=== PATIENT | male | born 1965 | race Caucasian/White ===

== ENCOUNTER 2018-08-14 19:33 | Emergency (ER) | payer MEDICAID ==
[2018-08-14] MEDS ORDERED: Sodium Chloride 0.9% 1,000 ML IV SCH (20:15)
[2018-08-14] MEDS ORDERED: Sodium Chloride 0.9% 10 ML Syringe FLUSH ONE (20:25)
[2018-08-14] MEDS ORDERED: Iopamidol 612 MG/ML 150 ML Bottle IV SCH (20:30)
--- NOTE | 2018-08-14 22:03 | CRLCT ---
INDICATION: Hemoptysis. TECHNIQUE: 3 mm axial imaging has been performed through the abdomen and pelvis. Sagittal and coronal reconstructions have been obtained. Findings: The lung bases are free of infiltrate. The enhancement of the liver is mildly heterogeneous. There is a small amount of free fluid adjacent to the liver. Subtle area decreased density is identified near the gallbladder fossa which may reflect some focal fat. The gallbladder is fluid filled without inflammatory change. The spleen is within normal limits. The bilateral adrenal glands are within normal limits. The kidneys demonstrate symmetric enhancement bilaterally. No hydronephrosis is seen. The pancreas demonstrates normal enhancement. No significant inflammatory change is seen. Retrocrural region and retroperitoneum demonstrate no lymphadenopathy. No significant free fluid is seen within the pelvis. There is inflammatory change extending inferior from the 2nd portion the duodenum into the right abdomen. This is posterior to the right colon. The appendix is within normal limits. Small amount of free fluid inferior to the cecum is noted. There is some wall thickening and inflammatory change of the right colon just proximal to the hepatic flexure. Questionable diverticulum noted in this region. The transverse colon and left colon demonstrates no inflammatory change. Urinary bladder is fluid-filled midline. Small bowel appears relatively decompressed. Prominent mesenteric vessels are identified as well as some prominent subcutaneous vessels. IMPRESSION: 1. Area of inflammation along the right abdomen. Small amount of free fluid adjacent to the liver. There does appear to be some wall thickening of the right colon just proximal to the hepatic flexure. Differential diagnosis includes focal colitis, diverticulitis or underlying mass lesion. There is small amount of free fluid adjacent to the cecum. Recommend colonoscopy. 2. Some mildly heterogeneous enhancement liver is identified which may reflect some intrinsic liver disease. 3. Some prominence to the mesenteric vessels is identified which may reflect a component of portal hypertension. 4. Findings discussed with the ordering provider. Dictated by Reginald Davis MD @ 08/14/2018 10:01:36 PM Please note that all CT scans at this facility use dose modulation, iterative reconstruction, and/or weight-based dosing when appropriate to reduce radiation dose to as low as reasonably achievable. Dictated by: Reginald Davis MD @ 08/14/2018 22:01:45 (Electronically Signed)
--- NOTE | 2018-08-14 22:15 | EDM.PDOC ---
ED HPI GENERAL MEDICAL PROBLEM - General Chief Complaint: Gastrointestinal Problem Stated Complaint: GI BLEED Time Seen by Provider: 08/14/18 20:05 Source of Information: Reports: Patient, Family () History Limitations: Reports: Intoxication - History of Present Illness INITIAL COMMENTS - FREE TEXT/NARRATIVE: Chief complaint: "spitting up blood for the past 2 months" This is a 52 year old male present to ER with his . He reports he is new to the area. Moved here 2 months ago from [place]. 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 But he has been drinking one pint of vodka daily for the past 2 months, prior to that, drank mostly on the weekends. Reports for two months has been intermittently spitting up small amounts of blood, intermittent dark tarry stools. reports had a EGD and Colonoscopy about 1 to 2 years ago, which was normal except for stricter in esophagus. denies chest pain, shortness of breath, fever, chills, rash or weakness. Onset: Gradual Duration: Chronic (2 months ), Waxing/Waning Location: Reports: Abdomen Quality: Reports: Other (reports no pain) Severity: Mild Improves with: Reports: None Associated Symptoms: Reports: No Other Symptoms - Related Data Allergies Allergy/AdvReac Type Severity Reaction Status Date / Time codeine Allergy Airway Verified 08/14/18 20:18 Tightness Home Meds: Home Meds Atenolol 1 tab PO DAILY 08/14/18 [History] Gabapentin [Gralise] 1 tab PO TID 08/14/18 [History] Omeprazole 1 tab PO DAILY 08/14/18 [History] clonazePAM [Clonazepam] 1 tab PO DAILY 08/14/18 [History] Past Medical History Cardiovascular History: Reports: Heart [place], [place] (medical management, no stents or surgery.) Respiratory History: Reports: Other (See Below) (started smoking cigarettes at age 38) Musculoskeletal History: Reports: Fracture Neurological History: Reports: Other (See Below) 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 prior to that drank every weekends and days off. Alcohol Use Frequency: Daily ([id number]), Weekly (for years) - Recreational Drug Use Recreational Drug Use: No - Living Situation & Occupation Living situation: Reports: Occupation: Employed (lives with in [place], [place]. He has 4 children, has 3 children.) ED ROS GENERAL - Review of Systems Review Of Systems: See Below Constitutional: Reports: No Symptoms HEENT: Reports: No Symptoms Respiratory: Reports: No Symptoms Cardiovascular: Reports: No Symptoms Endocrine: Reports: No Symptoms GI/Abdominal: Reports: Black Stool (dark tarry stool for 2 months.), Hematemesis : Reports: No Symptoms (for the past two months.) Musculoskeletal: Reports: No Symptoms Skin: Reports: No Symptoms Neurological: Reports: No Symptoms Psychiatric: Reports: No Symptoms Hematologic/Lymphatic: Reports: Easy Bleeding, Easy Bruising Immunologic: Reports: No Symptoms ED EXAM, GENERAL - Physical Exam Exam: See Below Exam Limited By: Intoxication (pleasant, cooperative, good historian) General Appearance: Alert, WD/WN, No Apparent Distress Eye Exam: Bilateral Eye: Abnormal EOM, Conjunctival Injection (jaundice-slight yellow color), PERRL Ear Exam: Bilateral Ear: Auricle Normal, Canal Normal, TM normal Nose: Normal Inspection, Normal Mucosa, No Blood Throat/Mouth: Normal Inspection, Normal Lips, Normal Teeth, Normal Gums, Normal Oropharynx, Normal Voice, No Airway Compromise Head: Atraumatic, Normocephalic Neck: Normal Inspection, Supple, Non-Tender, Full Range of Motion Respiratory/Chest: Lungs Clear, Normal Breath Sounds Cardiovascular: Regular Rate, Rhythm, No JVD, No Murmur, No Rub Peripheral Pulses: 2+: Radial (L), Radial (R), Posterior Tibial (L), Posterior Tibial (R) GI/Abdominal: Normal Bowel Sounds, Soft, Non-Tender, Distended ( reports his belly has been large for years, has not changed in size.) (Male) Exam: Deferred Rectal (Males) Exam: Deferred Back Exam: Normal Inspection, Full Range of Motion Extremities: Pedal Edema (trace edema) Neurological: No Motor/Sensory Deficits Psychiatric: Normal Affect, Normal Mood Skin Exam: Jaundice (eyes) Lymphatic: No Adenopathy Course - Vital Signs Last Recorded V/S: Last Vital Signs Temp 35.3 C 08/14/18 20:30 Pulse 105 H 08/14/18 20:30 Resp 19 08/14/18 20:30 BP 144/86 H 08/14/18 20:30 Pulse Ox 96 08/14/18 20:30 - Orders/Labs/Meds Orders: Active Orders 24 hr Category Date Time Status Sodium Chloride 0.9% [Normal Saline] 1,000 ml Med 08/14/18 20:15 Active IV ASDIRECTED Sodium Chloride 0.9% [Normal Saline] 85 ml Med 08/14/18 20:30 Active IV ASDIRECTED Medication Orders Sodium Chloride (Normal Saline) 1,000 mls @ 999 mls/hr IV ASDIRECTED NELLIE Sodium Chloride (Normal Saline) 85 mls @ 3 mls/sec IV ASDIRECTED NELLIE Last Admin: 08/14/18 20:53 Dose: 3 mls/sec Labs: Laboratory Tests 08/14/18 08/14/18 08/14/18 Range/Units 20:19 20:19 20:19 WBC 8.7 (4.5-11.0) K/uL RBC 2.97 L (4.30-5.90) M/uL Hgb 11.5 L (12.0-15.0) g/dL Hct 31.3 L (40.0-54.0) % MCV 105 H (80-98) fL MCH 39 H (27-31) pg MCHC 37 H (32-36) % Plt Count 79 L (150-400) K/uL Neut % (Auto) 47 (36-66) % Lymph % (Auto) 32 (24-44) % [place] % (Auto) 16 H (2-6) % Eos % (Auto) 5 H (2-4) % Baso % (Auto) 1 (0-1) % PT 15.4 H (9.5-12.0) sec INR 1.43 H (0.80-1.20) Sodium 138 L (140-148) mmol/L Potassium 3.6 (3.6-5.2) mmol/L Chloride 102 (100-108) mmol/L Carbon Dioxide 27 (21-32) mmol/L Anion Gap 12.6 (5.0-14.0) mmol/L BUN 8 (7-18) mg/dL Creatinine 0.9 (0.8-1.3) mg/dL Est Cr Clr Drug Dosing 93.83 mL/min Estimated GFR (MDRD) > 60 (>60) Glucose 131 H (74-106) mg/dL Calcium 8.6 (8.5-10.1) mg/dL Total Bilirubin 4.3 H (0.2-1.0) mg/dL AST 123 H (15-37) U/L ALT 37 (12-78) U/L Alkaline Phosphatase 261 H (46-116) U/L Ammonia (11-32) mmol/L Total Protein 9.3 H (6.4-8.2) g/dL Albumin 2.5 L (3.4-5.0) g/dL Globulin 6.8 H (2.3-3.5) g/dL Albumin/Globulin Ratio 0.4 L (1.2-2.2) Amylase 61 (25-115) U/L Lipase 351 (73-393) U/L Ethyl Alcohol mg/dL 08/14/18 08/14/18 Range/Units 20:19 20:19 WBC (4.5-11.0) K/uL RBC (4.30-5.90) M/uL Hgb (12.0-15.0) g/dL Hct (40.0-54.0) % MCV (80-98) fL MCH (27-31) pg MCHC (32-36) % Plt Count (150-400) K/uL Neut % (Auto) (36-66) % Lymph % (Auto) (24-44) % [place] % (Auto) (2-6) % Eos % (Auto) (2-4) % Baso % (Auto) (0-1) % PT (9.5-12.0) sec INR (0.80-1.20) Sodium (140-148) mmol/L Potassium (3.6-5.2) mmol/L Chloride (100-108) mmol/L Carbon Dioxide (21-32) mmol/L Anion Gap (5.0-14.0) mmol/L BUN (7-18) mg/dL Creatinine (0.8-1.3) mg/dL Est Cr Clr Drug Dosing mL/min Estimated GFR (MDRD) (>60) Glucose (74-106) mg/dL Calcium (8.5-10.1) mg/dL Total Bilirubin (0.2-1.0) mg/dL AST (15-37) U/L ALT (12-78) U/L Alkaline Phosphatase (46-116) U/L Ammonia 39 H (11-32) mmol/L Total Protein (6.4-8.2) g/dL Albumin (3.4-5.0) g/dL Globulin (2.3-3.5) g/dL Albumin/Globulin Ratio (1.2-2.2) Amylase (25-115) U/L Lipase (73-393) U/L Ethyl Alcohol 285 mg/dL Meds: Medications Generic Name Dose Route Start Last Admin Trade Name Freq PRN Reason Stop Dose Admin Sodium Chloride 1,000 mls @ 999 mls/hr 08/14/18 20:15 Normal Saline IV ASDIRECTED NELLIE Sodium Chloride 85 mls @ 3 mls/sec 08/14/18 20:30 08/14/18 20:53 Normal Saline IV 3 mls/sec ASDIRECTED NELLIE Administration Discontinued Medications Generic Name Dose Route Start Last Admin Trade Name Freq PRN Reason Stop Dose Admin Iopamidol 130 ml 08/14/18 20:30 08/14/18 20:53 Isovue-300 (61%) IV 150 ml . DIRECTED NELLIE Administration Sodium Chloride 10 ml 08/14/18 20:25 08/14/18 20:53 Saline Flush FLUSH 08/14/18 20:26 10 ml ONETIME ONE Administration - Re-Assessments/Exams Free Text/Narrative Re-Assessment/Exam: 08/14/18 22:35: Mr. Stone declines admission to hospital reviewed with Internal Medicine, labs are abnormal but no acute changes from labs on Wednesday will be okay to discharge to home with follow up in Primary Care tomorrow as schedule He need EGD and Colonoscopy in the near future. LABS: Wednesday08/12/2018; hemoglobin 12.0 today 11.5, Hct 33.3 today 31.3 plt [address] report, discussed ETOH treatment - he wants to wean himself off ETOH. discussed liver damage from drinking daily. 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 Mr. Stone does not want to stay, he will go home with follow up in Primary Care Departure - Departure Time of Disposition: 22:30 Disposition: Home, Self-Care 01 Condition: Good Clinical Impression: Gastritis Qualifiers: Gastritis type: alcoholic Chronicity: chronic Alcohol intoxication Qualifiers: Complication of substance-induced condition: with unspecified complication Qualified Code(s): F10.929 - Alcohol use, unspecified with intoxication, unspecified - Discharge Information *PRESCRIPTION DRUG MONITORING PROGRAM REVIEWED*: No *COPY OF PRESCRIPTION DRUG MONITORING REPORT IN PATIENT IFTIKHAR: No Instructions: Gastritis, Adult, [id number], Alcohol Intoxication, Easy-to- Read Referrals: Jj Mcneill NP [Primary Care Provider] - Forms: ED Department Discharge Care Plan Goals: Gastritis with Alcohol intoxication -continue Prilosec 40mg po bid -stop or cut down on drinking -stop smoking -avoid spicy foods, more of a bland diet -push fluids -keeps appointment in am for follow up Return to ER for any concerns or worsen symptoms. Copy of CT Abdomen-pelvis given to and Mrs. Stone for Health Record - Problem List & Annotations (1) Gastritis SNOMED Code(s): 4775756 Code(s): K29.70 - GASTRITIS, UNSPECIFIED, WITHOUT BLEEDING Status: Acute Priority: High Current Visit: Yes Qualifiers: Gastritis type: alcoholic Chronicity: chronic (2) Alcohol intoxication SNOMED Code(s): 27789348 Code(s): F10.929 - ALCOHOL USE, UNSPECIFIED WITH INTOXICATION, UNSPECIFIED Status: Acute Priority: High Current Visit: Yes Qualifiers: Complication of substance-induced condition: with unspecified complication Qualified Code(s): F10.929 - Alcohol use, unspecified with intoxication, unspecified - Problem List Review Problem List Initiated/Reviewed/Updated: Yes - My Orders Last 24 Hours: My Active Orders 08/14/18 20:15 Sodium Chloride 0.9% [Normal Saline] 1,000 ml IV ASDIRECTED 08/14/18 20:30 Sodium Chloride 0.9% [Normal Saline] 85 ml IV ASDIRECTED - Assessment/Plan Last 24 Hours: My Active Orders 08/14/18 20:15 Sodium Chloride 0.9% [Normal Saline] 1,000 ml IV ASDIRECTED 08/14/18 20:30 Sodium Chloride 0.9% [Normal Saline] 85 ml IV ASDIRECTED Plan: Gastritis with Alcohol intoxication -continue Prilosec 40mg po bid -stop or cut down on drinking -stop smoking -avoid spicy foods, more of a bland diet -push fluids -keeps appointment in am for follow up Return to ER for any concerns or worsen symptoms. Copy of CT Abdomen-pelvis given to MrMaxime and Maxime Stone for Health Record
== END 2018-08-14 22:39 | disposition home or self-care (01) ==
LOC: JP.ED 19:33
DX: K29.70 Gastritis, unspecified, without bleeding (principal); F10.929 Alcohol use, unspecified with intoxication, unspecified; Y90.8 Blood alcohol level of 240 mg/100 ml or more; F17.210 Nicotine dependence, cigarettes, uncomplicated; Z79.899 Other long term (current) drug therapy; Z88.5 Allergy status to narcotic agent
CPT/HCPCS: 36415; 74177; 80053; 82140; 82150; 83690; 85025; 85610; 99283; 99285; G0480; J7030

== ENCOUNTER 2018-08-16 07:56 | Inpatient (IN) | payer MEDICAID ==
[~2018-08-16 07:56] MED LIST: Midazolam 1 MG/ML 2 ML SDV ONE; Propofol 200 MG/20 ML SDV ONE; fentaNYL 100 MCG/2 ML SDV ONE
[2018-08-16] MEDS ORDERED: Dextrose 5%-Lactated Ringers 1,000 ML IV SCH (08:45)
[2018-08-16] MEDS ORDERED: Glycopyrrolate 0.2 MG/ML 2 ML SDV IVPUSH ONE (09:30)
[2018-08-16] MEDS ORDERED: Glycopyrrolate 0.2 MG/ML 2 ML SDV ONE (09:37)
[2018-08-16] MEDS ORDERED: Pantoprazole 40 MG Vial IVPUSH ONE (10:15)
[2018-08-16] MEDS ORDERED: MVI, Adult with Vitamin K 10 ML, Thiamine 100 MG, Chromium/Copper/Mang/Selen/Zn 1 ML in... IV ONE ×4 (11:00)
--- NOTE | 2018-08-16 12:34 | PCM.HP ---
H&P History of Present Illness - General Date of Service: 08/16/18 Admit Problem/Dx: Admission Diagnosis/Problem Admission Diagnosis/Problem Gastritis Source of Information: Patient, Family, Provider, RN Notes Reviewed History Limitations: Reports: No Limitations - History of Present Illness Initial Comments - Free Text/Narative: Mr. Stone is a 52-year-old gentleman who was admitted through the professional healthcare representative unit for further management of severe gastritis with hematemesis and alcohol withdrawal. He has a long-standing history of daily alcohol use consuming up to 16 ounces of alcohol per day. Over the past few weeks is experienced regular episodes of small amount of hematemesis as well as epigastric abdominal pain. He was referred to Dr. Stone for upper GI endoscopy which was performed earlier this morning. At the time of endoscopy was found to have diffuse gastritis as well as esophageal varices that were fairly prominent. He denies any previous history of liver disease, laboratory studies show thrombocytopenia which would be consistent with portal hypertension and splenic sequestration of platelets, elevated INR at 1.44, and elevated bilirubin of 5. - Related Data Allergies/Adverse Reactions: Allergies Allergy/AdvReac Type Severity Reaction Status Date / Time codeine Allergy Airway Verified 08/14/18 20:18 Tightness Home Medications: Home Meds Atenolol 25 mg PO DAILY 08/14/18 [History] Gabapentin [Gralise] 300 mg PO TID 08/14/18 [History] Omeprazole 20 mg PO DAILY 08/14/18 [History] clonazePAM [Clonazepam] 1 mg PO DAILY 08/14/18 [History] Multivitamin [Multivitamins] 1 cap PO DAILY 08/15/18 [History] Vitamin B Complex [B Complex] 1 cap PO DAILY 08/15/18 [History] Past Medical History Cardiovascular History: Reports: Heart Murmur, Hypertension, [place] Respiratory History: Reports: Asthma, Other (See Below) Other Respiratory History: coughing up blood Gastrointestinal History: Reports: GI Bleed Musculoskeletal History: Reports: Fracture Neurological History: Reports: Other (See Below) 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 Psychiatric History: Reports: Addiction - Infectious Disease History Infectious Disease History: Reports: Chicken Pox, Shingles - Past Surgical History Cardiovascular Surgical History: Reports: None Respiratory Surgical History: Reports: None GI Surgical History: Reports: Colonoscopy, EGD, Esophageal Dilatation Neurological Surgical History: Reports: None Musculoskeletal Surgical History: Reports: None Dermatological Surgical History: Reports: None Social & Family History - Family History Family Medical History: Unobtainable - Tobacco Use Smoking Status *Q: Current Every Day Smoker Years of Tobacco use: 14 Packs/Tins Daily: 0.5 Used Tobacco, but Quit: No Second Hand Smoke Exposure: No - Caffeine Use Caffeine Use: Reports: Coffee, Soda - Alcohol Use Days Per Week of Alcohol Use: 7 Number of Drinks Per Day: 1 Total Drinks Per Week: 7 Date of Last Drink: 08/15/18 Time of Last Drink: 20:00 - Recreational Drug Use Recreational Drug Use: No - Living Situation & Occupation Living situation: Reports: Occupation: Employed H&P Review of Systems - Review of Systems: Review Of Systems: See Below General: Reports: No Symptoms HEENT: Reports: No Symptoms Pulmonary: Reports: No Symptoms Cardiovascular: Reports: No Symptoms Gastrointestinal: Reports: Abdominal Pain, Distension, Hematemesis, Nausea. Denies: Constipation, Diarrhea, Difficulty Swallowing Genitourinary: Reports: No Symptoms Musculoskeletal: Reports: No Symptoms Skin: Reports: No Symptoms Psychiatric: Reports: No Symptoms Neurological: Reports: No Symptoms Hematologic/Lymphatic: Reports: No Symptoms Immunologic: Reports: No Symptoms Exam - Exam Exam: See Below - Vital Signs Vital Signs: Last Vital Signs Temp 98.8 F 08/16/18 10:27 Pulse 115 H 08/16/18 11:42 Resp 18 08/16/18 11:42 BP 155/81 H 08/16/18 11:42 Pulse Ox 99 08/16/18 11:42 Weight: 205 lb - Exam Quality Assessment: DVT Prophylaxis General: Alert, Oriented, Cooperative, Moderate Distress HEENT: Hearing Intact, Mucosa Moist & [place], Normal Nasal Septum, Posterior Pharynx Clear, Pupils Equal. No: Conjunctiva Clear (Jaundice) Neck: Supple, Trachea Midline, +2 Carotid Pulse wo Bruit Lungs: Clear to Auscultation, Normal Respiratory Effort Cardiovascular: Regular Rate, Regular Rhythm, Normal S1, Normal S2. No: Systolic Murmur, Diastolic Murmur GI/Abdominal Exam: Soft, No Organomegaly, Distended, Tender. No: Guarding, Rigid, Rebound Back Exam: Normal Inspection, Full Range of Motion Extremities: Non-Tender, No Pedal Edema Skin: Warm, Dry, Intact Neurological: Cranial Nerves Intact, Strength Equal Bilateral, Normal Speech, Normal Tone, Sensation Intact. No: Focal Deficit Neuro Extensive - Mental Status: Alert, Oriented x3, Normal Mood/Affect, Normal Cognition, Memory Intact - Patient Data Lab Results Last 24 hrs: Laboratory Results - last 24 hr 08/16/18 08/16/18 Range/Units 08:27 08:27 WBC 7.8 (4.5-11.0) K/uL RBC 3.04 L (4.30-5.90) M/uL Hgb 11.5 L (12.0-15.0) g/dL Hct 31.9 L (40.0-54.0) % MCV 105 H (80-98) fL MCH 38 H (27-31) pg MCHC 36 (32-36) % Plt Count 77 L (150-400) K/uL PT 15.5 H (9.5-12.0) sec INR 1.44 H (0.80-1.20) APTT 38.3 H (27.0-36.0) sec Result Diagrams: 08/16/18 08:27 08/16/18 12:25 *Q Meaningful Use (ADM) - VTE *Q VTE Pharmacological Contraindications *Q: Active Hemorrhage - VTE Risk Assess *Q Each Risk Factor Represents 1 Point: Age 41 - 59 years, Obesity ( BMI > 25 kg/m2 ) Total Score 1 Point Risk Factors: 2 Each Risk Factor Represents 2 Points: None Total Score 2 Point Risk Factors: 0 Each Risk Factor Represents 3 Points: None Total Score 3 Point Risk Factors: 0 Each Risk Factor Represents 5 Points: None Total Score 5 Point Risk Factors: 0 Venous Thromboembolism Risk Factor Score *Q: 2 Problem List Initiated/Reviewed/Updated: Yes Orders Last 24hrs: Active Orders 24 hr Category Date Time Status Patient Status Manage Transfer [TRANSFER] Routine ADT 08/16/18 12:25 Ordered EDNA TEST [RM] Routine Lab 08/16/18 09:58 Received COMPREHENSIVE METABOLIC PN,CMP [CHEM] Stat Lab 08/16/18 12:25 Ordered MAGNESIUM [CHEM] Stat Lab 08/16/18 12:25 Ordered Dextrose 5%-Lactated Ringers 1,000 ml Med 08/16/18 08:45 Active IV ASDIRECTED MVI, Adult with Vitamin K [Infuvite Adult] 10 ml Med 08/16/18 11:00 Active Thiamine [Vitamin B-1] 100 mg Chromium/Copper/Wally/Selen/Zn [Multitrace-5 Concentrate ] 1 ml Lactated Ringers [Ringers, Lactated] 1,000 ml IV ONETIME Resuscitation Status Routine Resus Stat 08/16/18 12:27 Ordered Medication Orders Dextrose/Lactated Ringer's (Dextrose 5%-Lactated Ringers) 1,000 mls @ 100 mls/ hr IV ASDIRECTED NELLIE Last Admin: 08/16/18 08:46 Dose: 100 mls/hr Multivitamins/Minerals 10 ml/Thiamine HCl 100 mg/ Chromium/Copper/Manganese/ Seleni/Zn 1 ml/ Lactated Ringer's 1,012 mls @ 500 mls/hr IV ONETIME ONE Stop: 08/16/18 13:01 Last Admin: 08/16/18 11:15 Dose: 500 mls/hr Assessment/Plan Comment:: ASSESSMENT AND PLAN SEVERE GASTRITIS-likely secondary to long-standing alcohol use, CLOtest pending -Protonix 40 mg IV twice daily -Discontinue alcohol use -Clear liquid diet HEPATIC 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 There is evidence of portal hypertension with esophageal varices and thrombocytopenia likely secondary to splenic enlargement. -Discontinue alcohol use -Initiate beta jacki therapy because of varices -Outpatient referral to gastroenterology for management of varices ALCOHOL WITHDRAWAL-evidence of withdrawal including tremulousness and mild confusion -Alcohol withdrawal protocol -Gabapentin 400 mg by mouth every 8 hours 4 days, then 200 mg every 8 hours 4 days -Referral for alcohol treatment after discharge MAINTENANCE ISSUES -DVT prophylaxis; SCUDs, anticoagulation contraindicated because of recent bleeding -GI prophylaxis; Protonix as above -Mullins catheter; not indicated -Nutrition; clear liquid diet -Nicotine dependence; 7 mg nicotinic patch CODE STATUS-FULL CODE ADMISSION STATUS-patient will be admitted to inpatient status, expect at least a 2 night hospital stay for evaluation and management of problems as outlined above. At the time of this admission I do not reasonably expected evaluation and management of this problem will require more than a 96 hour hospital stay. DISPOSITION-anticipate discharge to alcohol treatment PRIMARY CARE PROVIDER-Jj Mcneill
[2018-08-16] MEDS ORDERED: Ondansetron 4 MG/2 ML SDV IV PRN (13:20)
[2018-08-16] MEDS ORDERED: Non-Formulary Medication 1 Each (Multivitamin [Multivitamins] 1 CAP) PO SCH (13:20)
[2018-08-16] MEDS ORDERED: LORazepam 2 MG/ML SDV IV SCH (13:20)
[2018-08-16] MEDS ORDERED: Sodium Chloride 0.9% 10 ML Syringe FLUSH PRN (13:20)
[2018-08-16] MEDS: Sodium Chloride 0.9% 1,000 ML IV SCH ×2 (13:53→21:09)
[2018-08-16] MEDS ORDERED: Nicotine 7 MG/24 Hr Patch TRDERM SCH (14:00)
[2018-08-16] MEDS ORDERED: Thiamine 100 MG Tab PO SCH (14:00)
[2018-08-16] MEDS ORDERED: Potassium Chloride 20 MEQ Tab.ER PO ONE (14:00)
[2018-08-16] MEDS ORDERED: Folic Acid 1 MG Tab PO SCH (14:00)
[2018-08-16] MEDS ORDERED: Pantoprazole 40 MG Vial IV SCH (14:00)
[2018-08-16] MEDS: Gabapentin 400 MG Cap PO SCH ×2 (14:06→21:04)
[2018-08-16] MEDS: Magnesium Sulfate/Water 2 GM in Premix Bag 1 BAG IV SCH ×2 (14:06→19:58)
[2018-08-16] MEDS: Magnesium Oxide 400 MG Tab PO SCH ×2 (14:06→21:04)
[2018-08-16] MEDS: LORazepam 1 MG Tab PO SCH ×5 (14:25→21:51)
--- NOTE | 2018-08-16 23:44 | CRLCT ---
INDICATION: Left-sided weakness TECHNIQUE: CT head without contrast. COMPARISON: None FINDINGS: CSF spaces: Within normal limits for age. Brain parenchyma: 3.5 centimeter x 2.7 centimeter right frontal parafalcine hemorrhage with effacement of the right mid lateral ventricle body. Effacement is also noted involving the right frontal insert and parietal sulci. Dependent blood identified in both occipital horns. Mild right to left midline shift. Skull base and calvarium: The visualized paranasal sinuses and mastoid air cells demonstrate no acute or significant findings. The visualized orbits are grossly unremarkable. No skull fractures. IMPRESSION: 3.5 centimeter x 2.7 centimeter right frontal parafalcine intraparenchymal hemorrhage with mild [id number] midline shift and dependent blood products in both occipital horns. Effacement of the right anterior mid lateral ventricular body and effacement of adjacent hemispheric sulci. Findings discussed on 08/16/2018 at 11:[address] Martinez. Dictated by Wai Tirado MD @ 08/16/2018 11:41:39 PM Please note that all CT scans at this facility use dose modulation, iterative reconstruction, and/or weight-based dosing when appropriate to reduce radiation dose to as low as reasonably achievable. Dictated by: Wai Tirado MD @ 08/16/2018 23:41:45 (Electronically Signed)
--- NOTE | 2018-08-17 00:25 | PCM.DCSUM1 ---
Discharge Summary - Hospital Course Brief History: Mr. Stone is a 52-year-old gentleman who was admitted from the outpatient area the hospital for further evaluation and management of severe gastritis with recent hematemesis and alcohol withdrawal. - Discharge Data Discharge Date: 08/17/18 Discharge Disposition: DC/Tfer to Acute Hospital 02 Condition: Serious - Discharge Diagnosis/Problem(s) (1) Alcohol withdrawal SNOMED Code(s): 663577555 ICD Code: F10.239 - ALCOHOL DEPENDENCE WITH WITHDRAWAL, UNSPECIFIED Status : Acute Current Visit: Yes (2) Cirrhosis of liver SNOMED Code(s): 41635757 ICD Code: K74.60 - UNSPECIFIED CIRRHOSIS OF LIVER Status: Acute Current Visit: Yes (3) Intracerebral hemorrhage SNOMED Code(s): 250398047 ICD Code: I61.9 - NONTRAUMATIC INTRACEREBRAL HEMORRHAGE, UNSPECIFIED Status : Acute Current Visit: Yes (4) Gastritis SNOMED Code(s): 1539778 ICD Code: K29.70 - GASTRITIS, UNSPECIFIED, WITHOUT BLEEDING Status: Acute Priority: High Current Visit: No Qualifiers: Gastritis type: alcoholic Chronicity: chronic - Patient Summary/Data Hospital Course: Mr. Stone is a 52-year-old gentleman who was admitted through the home care manager rn unit for further management of severe gastritis with hematemesis and alcohol withdrawal. He has a long-standing history of daily alcohol use consuming up to 16 ounces of alcohol per day. Over the past few weeks is experienced regular episodes of small amount of hematemesis as well as epigastric abdominal pain. He was referred to Dr. Stone for upper GI endoscopy which was performed earlier this morning. At the time of endoscopy was found to have diffuse gastritis as well as esophageal varices that were fairly prominent. He denies any previous history of liver disease, laboratory studies show thrombocytopenia which would be consistent with portal hypertension and splenic sequestration of platelets, elevated INR at 1.44, and elevated bilirubin of 5. On admission he was given IV fluids for hydration and started on alcohol withdrawal protocol. In addition he was placed on gabapentin 400 mg every 8 hours for management of alcohol withdrawal. Nadolol 40 mg twice daily was initiated because of varices noted at the time of EGD. Protonix 40 mg IV every 12 hours was initiated for management of his gastritis. After admission he did develop more prominent symptoms of alcohol withdrawal requiring use of lorazepam. Earlier in the day he had reported symptoms of headache and was given oxycodone 5 mg every 4 hours, by the time of transfer his headache had resolved. On evaluation nurse and staff noted left arm weakness on the evening of transfer. On evaluation by myself he was noted to have moderate to severe muscle weakness involving the left upper extremity. There was also possible mild weakness of the left lower extremity. Sensation was intact and reflexes were symmetrical, no cranial nerve abnormalities were identified. NIHSS score was found to be [address] scan of the head without contrast was obtained and showed evidence of a large right-sided cerebral hemorrhage. Findings were reviewed with the neurosurgeon on-call at [facility] as well as the hospitalist on-call and they have agreed to accept the patient in transfer for further subspecialty evaluation and management. - Patient Instructions Diet: NPO Activity: Bedrest Other/Special Instructions: Mr. Stone will be transferred to [facility] via [facility] ambulance - Discharge Plan *PRESCRIPTION DRUG MONITORING PROGRAM REVIEWED*: Not Applicable *COPY OF PRESCRIPTION DRUG MONITORING REPORT IN PATIENT IFTIKHAR: Not Applicable Home Medications: Home Meds Gabapentin [Gralise] 300 mg PO TID 08/14/18 [History] Omeprazole 20 mg PO DAILY 08/14/18 [History] clonazePAM [Clonazepam] 1 mg PO DAILY 08/14/18 [History] Multivitamin [Multivitamins] 1 cap PO DAILY 08/15/18 [History] Vitamin B Complex [B Complex] 1 cap PO DAILY 08/15/18 [History] Folic Acid 1 mg PO DAILY tablet 08/17/18 [Rx] Nadolol [Naldol] 40 mg PO BID tablet 08/17/18 [Rx] Nicotine [Habitrol] 7 mg TRDERM DAILY patch 08/17/18 [Rx] Pantoprazole [ProTONIX IV] 40 mg IV Q12H vial 08/17/18 [Rx] Thiamine [Vitamin B-1] 100 mg PO DAILY tablet 08/17/18 [Rx] - Discharge Summary/Plan Comment DC Time >30 min.: Yes (60 minutes of time were spent evaluating the patient and arranging transfer) - Patient Data Vitals - Most Recent: Last Vital Signs Temp 99.8 F 08/17/18 00:00 Pulse 89 08/17/18 00:00 Resp 13 08/17/18 00:00 BP 159/91 H 08/16/18 23:00 Pulse Ox 95 08/17/18 00:00 Weight - Most Recent: 205 lb I&O - Last 24 hours: Intake & Output 08/16/18 08/16/18 08/17/18 14:59 22:59 06:59 Intake Total 1100 2304 Output Total 1325 50 Balance 1100 979 -50 Lab Results - Last 24 hrs: Laboratory Results - last 24 hr 08/16/18 08/16/18 08/16/18 Range/Units 08:27 08:27 12:25 WBC 7.8 (4.5-11.0) K/uL RBC 3.04 L (4.30-5.90) M/uL Hgb 11.5 L (12.0-15.0) g/dL Hct 31.9 L (40.0-54.0) % MCV 105 H (80-98) fL MCH 38 H (27-31) pg MCHC 36 (32-36) % Plt Count 77 L (150-400) K/uL PT 15.5 H (9.5-12.0) sec INR 1.44 H (0.80-1.20) APTT 38.3 H (27.0-36.0) sec Sodium 135 L (140-148) mmol/L Potassium 3.7 (3.6-5.2) mmol/L Chloride 101 (100-108) mmol/L Carbon Dioxide 24 (21-32) mmol/L Anion Gap 13.7 (5.0-14.0) mmol/L BUN 8 (7-18) mg/dL Creatinine 0.9 (0.8-1.3) mg/dL Est Cr Clr Drug Dosing 90.78 mL/min Estimated GFR (MDRD) > 60 (>60) Glucose 107 H (74-106) mg/dL Calcium 8.4 L (8.5-10.1) mg/dL Magnesium 1.6 L (1.8-2.4) mg/dL Total Bilirubin 5.0 H (0.2-1.0) mg/dL AST 125 H (15-37) U/L ALT 33 (12-78) U/L Alkaline Phosphatase 175 H (46-116) U/L Total Protein 9.1 H (6.4-8.2) g/dL Albumin 2.3 L (3.4-5.0) g/dL Globulin 6.8 H (2.3-3.5) g/dL Albumin/Globulin Ratio 0.3 L (1.2-2.2) Med Orders - Current: Current Medications Folic Acid (Folic Acid) 1 mg PO DAILY [facility] Last Admin: 08/16/18 14:06 Dose: 1 mg Gabapentin (Neurontin) 400 mg PO Q8H [facility] Last Admin: 08/16/18 21:04 Dose: 400 mg Sodium Chloride (Normal Saline) 1,000 mls @ 125 mls/hr IV ASDIRECTED [facility] Last Admin: 08/16/18 21:09 Dose: 125 mls/hr Lorazepam (Ativan) 0 mg IV ASDIRECTED [facility]; Protocol Lorazepam (Ativan) 0 mg PO ASDIRECTED [facility]; Protocol Last Admin: 08/16/18 21:51 Dose: 1 mg Magnesium Oxide (Magnesium Oxide) 400 mg PO BID [facility] Last Admin: 08/16/18 21:04 Dose: 400 mg Multivitamins/Minerals (Thera M Plus) 1 tab PO DAILY [facility] Nadolol (Naldol) 40 mg PO BID [facility] Last Admin: 08/16/18 21:04 Dose: 40 mg Nicotine (Habitrol) 7 mg TRDERM DAILY [facility] Last Admin: 08/16/18 14:06 Dose: Not Given Ondansetron HCl (Zofran) 4 mg IV Q4H PRN PRN Reason: Nausea/Vomiting Last Admin: 08/16/18 16:31 Dose: 4 mg Pantoprazole Sodium (Protonix Iv) 40 mg IV Q12H [facility] Last Admin: 08/16/18 14:07 Dose: 40 mg Sodium Chloride (Saline Flush) 10 ml FLUSH ASDIRECTED PRN PRN Reason: Keep Vein Open Thiamine HCl (Vitamin B-1) 100 mg PO DAILY [facility] Last Admin: 08/16/18 14:06 Dose: 100 mg Vitamin B Complex (Vitamin B Complex) 1 each PO DAILY [facility] Discontinued Medications Atenolol (Tenormin) 25 mg PO DAILY [facility] Fentanyl (Sublimaze) Confirm Administered Dose 100 mcg .ROUTE .STK-MED ONE Stop: 08/16/18 07:53 Glycopyrrolate (Glycopyrrolate) 0.4 mg IVPUSH ONETIME ONE Stop: 08/16/18 09:31 Last Admin: 08/16/18 19:09 Dose: Not Given Glycopyrrolate (Glycopyrrolate) Confirm Administered Dose 0.4 mg .ROUTE .STK- MED ONE Stop: 08/16/18 09:38 Dextrose/Lactated Ringer's (Dextrose 5%-Lactated Ringers) 1,000 mls @ 100 mls/ hr IV ASDIRECTED [facility] Last Admin: 08/16/18 08:46 Dose: 100 mls/hr Multivitamins/Minerals 10 ml/Thiamine HCl 100 mg/ Chromium/Copper/Manganese/ Seleni/Zn 1 ml/ Lactated Ringer's 1,012 mls @ 500 mls/hr IV ONETIME ONE Stop: 08/16/18 13:01 Last Admin: 08/16/18 11:15 Dose: 500 mls/hr Magnesium Sulfate 2 gm/ Premix 50 mls @ 25 mls/hr IV Q6H [facility] Stop: 08/16/18 21:59 Last Admin: 08/16/18 19:58 Dose: 25 mls/hr Midazolam HCl (Versed 1 Mg/Ml) Confirm Administered Dose 2 mg .ROUTE .STK-MED ONE Stop: 08/16/18 07:53 Pantoprazole Sodium (Protonix Iv) 40 mg IVPUSH ONETIME ONE Stop: 08/16/18 10:16 Last Admin: 08/16/18 10:20 Dose: 40 mg Potassium Chloride (Klor-Con M20) 40 meq PO ONETIME ONE Stop: 08/16/18 14:01 Last Admin: 08/16/18 14:06 Dose: 40 meq Propofol (Diprivan 20 Ml) Confirm Administered Dose 200 mg .ROUTE .STK-MED ONE Stop: 08/16/18 07:53 - Exam Quality Assessment: Reports: DVT Prophylaxis General: Reports: Alert, Oriented, Cooperative, Mild Distress HEENT: Reports: Pupils Equal, Pupils Reactive, EOMI, Mucous Membr. Moist/[place], Scleral Icterus Neck: Reports: Supple Lungs: Reports: Clear to Auscultation, Normal Respiratory Effort Cardiovascular: Reports: Regular Rate, Regular Rhythm, No Murmurs GI/Abdominal Exam: Soft, No Organomegaly, Tender. No: Distended, Guarding, Rigid, Rebound Extremities: Non-Tender, No Pedal Edema Skin: Reports: Warm, Dry, Intact Neurological: Reports: Normal Speech, Reflexes Equal Bilateral, Sensation Intact , Cranial Nerves Intact. Denies: Strength Equal Bilateral (Left upper extremity weakness) Psy/Mental Status: Reports: Withdrawal Symptoms *Q Meaningful Use (DIS) - VTE *Q VTE Pharmacological Contraindications *Q: Active Hemorrhage
[2018-08-17] MEDS ORDERED: Atenolol 25 MG Tab PO SCH (09:00)
[2018-08-17] MEDS ORDERED: Vitamin B Complex Tab PO SCH (09:00)
[2018-08-17] MEDS ORDERED: Multivitamins with Iron/Calcium/Folic Acid/Minerals Tab PO SCH (09:00)
--- NOTE | 2018-08-18 12:45 | OR ---
DATE OF PROCEDURE: 08/16/2018 PREOPERATIVE DIAGNOSIS: Epigastric pain with history of hematemesis. POSTOPERATIVE DIAGNOSES: Upper GI endoscopy showing, 1. Large esophageal varices, but without signs of recent ulceration or bleeding. 2. Diffuse gastritis with scattered erosions in antrum (again with no active bleeding). OPERATIVE PROCEDURE: Esophagogastroduodenoscopy with antral biopsies for CLOtest. ANESTHESIA: IV sedation. INDICATION FOR PROCEDURE: This 52-year-old is presenting with some history of hematemesis. He has history of severe alcoholism and appeared to be probably in renal withdrawal state presently. He presently has been on omeprazole 20 to 40 mg a day, although, compliance with that regimen is somewhat questionable. The plan is to proceed with upper GI endoscopy with biopsies as indicated. Potential risks including bleeding and perforation were discussed, and the patient wishes to proceed. DETAILS OF PROCEDURE: The patient was taken to the operating room and placed in a left lateral decubitus position. IV sedation was administered, after which the upper GI endoscope was passed orally through the length of the esophagus and into the stomach with retroflexion view of the fundus, and thereafter through the pyloric channel and into the proximal duodenum. Findings included normal hypopharynx, larynx, and upper esophageal sphincter. As one entered the esophageal body, roughly senior care down toward the EG junction, there were some varices beginning to be seen. As one approached the EG junction, one of these varices probably in the range of 8 to 10 mm. There were also some smaller varices present near the EG junction as well. However, there was no significant inflammation of the mucosa in this area, i.e., there were no significant esophagitis or erosions present. The patient had no significant hiatal hernia. Within the stomach, there was some diffuse gastritis with some scattered erosions in the antral area. These were covered with fibrinous exudate, but no active bleeding was seen. The pyloric channel and duodenum junction of the third and fourth portions were otherwise unremarkable. At this point, biopsies were obtained from the antrum and sent for CLOtest for H. pylori. Minimal bleeding from the biopsy sites was seen, and the procedure then concluded. At this point, we will have Dr. Martinez see the patient with regard to hospitalist consultation regarding possible admission for treatment of the alcohol addiction. Otherwise, we will ask Dr. Martinez whether some management options such as adding beta- blockers might be considered given the extent of the esophageal varices. Jesús Stone MD /[id number]
== END 2018-08-17 00:30 | DRG 377 ==
LOC: JP.SDS 07:56 → JP.ICU 12:25
PROVIDERS: ADMIT Hospitalist; ATTEND Hospitalist
PROC: 0DB78ZX Excision of Stomach, Pylorus, Via Natural or Artificial Opening Endoscopic, Diagnostic (ICD-10-PCS; principal; 2018-08-16)
DX: K29.21 Alcoholic gastritis with bleeding (principal); I85.11 Secondary esophageal varices with bleeding; I61.8 Other nontraumatic intracerebral hemorrhage; F10.239 Alcohol dependence with withdrawal, unspecified; K76.6 Portal hypertension; G81.94 Hemiplegia, unspecified affecting left nondominant side; F10.20 Alcohol dependence, uncomplicated; K70.30 Alcoholic cirrhosis of liver without ascites; K70.10 Alcoholic hepatitis without ascites; F17.210 Nicotine dependence, cigarettes, uncomplicated; I10 Essential (primary) hypertension; I25.2 Old myocardial infarction; D69.6 Thrombocytopenia, unspecified
CPT/HCPCS: 36415; 70450; 80053; 83735; 85027; 85610; 85730; 87081; A9270-GY; C9113; J2250; J2405; J2704; J3010; J3411; J3475; J3490; J7030; J7042; J7120